=== PATIENT | female | born 1940 | race Caucasian/White ===

== ENCOUNTER → 2019-07-09 | Day surgery (SDC) | payer MEDICARE, OTHER ==
[~2019-07-09] MED LIST: ALEVE220 MG PO; COUMADIN 1MG TAB1 M1 PO; LIPITOR 20 MG T20 M1 PO; METFORMIN HCL500 MG PO; NORCO 5-325 TA1 EACH PO; NORVASC5 MG PO; OMEGA 3 FISH OIL PO; OXYIR5 MG PO; TRAMADOL 50 MG50 MG PO; VITAMIN D 5050000 I1 PO
[2019-07-09 09:55] LABS: HEMATOCRIT 41.9 % (37.0-47.0); HEMOGLOBIN 14.3 gm/dL (12.0-15.0); MCH 29.2 pg (26.0-34.0); MCV 85.7 fL (80.0-100.0); MPV 8.6 fl. (7.2-11.1); RBC 4.89 mil/uL (4.20-5.00); RDW-CV 14.1 % (10.5-14.5)
[2019-07-09 10:04] LABS: CALCIUM 9.3 mg/dL (8.5-10.1); POTASSIUM 4.8 mmol/L (3.5-5.1)
[2019-07-09 10:09] LABS: ALBUMIN 3.9 g/dL (3.4-5.0); TOTAL BILIRUBIN 0.7 mg/dL (<0.1-1.0); TOTAL PROTEIN 7.6 g/dL (6.4-8.2)
--- NOTE | 2019-07-09 13:47 | EKG ---
[place] [address] ELECTROCARDIOGRAM REPORT Name: WINGDILMA Rosales Room: [facility]#: [id number] Admission: 07/09/19 Attend Phys: Lorie Short DO Discharge: Date of : 36 Report #: [id number] THIS REPORT FOR: //name// [facility] Test Date: 2019-07-09 Test Time: 09:51:19 Pat Name: DILMA DIMAS Department: Room: Gender: F Chief Technical Officer: : 1940 Requested By: Pasquale Zaragoza Order Number: [id number] Pranay MD: Jose Johnson Measurements Intervals [place] Rate: 80 P: 39 WI: 156 QRS: 50 QRSD: 96 T: 6 QT: 402 QTc: 464 Interpretive Statements Sinus rhythm Baseline wander in lead(s) V3 Compared to ECG 11/19/2009 14:44:23 Ventricular premature complex(es) no longer present Electronically Signed On 07-09-2019 13:46:47 [employer]ESS[employer]INE[employer] by Jose Johnson [email or web address] <ELECTRONICALLY SIGNED> By: Jose Johnson MD, [facility] 07/09/19 1346 [phone] Jose Johnson MD, [facility] /EPI
--- NOTE | 2019-07-14 13:15 | OP ---
[address] [address] OPERATIVE REPORT Name: DILMA DIMAS Room: [facility].#: [id number] Admission: 07/09/19 Attend Phys: Lorie Short DO Discharge: Date of : 36 Report #: [id number] THIS REPORT FOR: //name// CC: Lorie Cohen DO DICTATED BY: Edgar Salcedo DO DATE OF SERVICE: 07/09/2019 Edgar Salcedo DO, PGY3 dictating on behalf of Lorie Short DO. PREOPERATIVE DIAGNOSIS: Right breast intraductal papilloma. POSTOPERATIVE DIAGNOSES: Right breast intraductal papilloma. SURGEON: Lorie Short DO CO-SURGEON: Edgar Salcedo DO, PGY3 PARTS TECHNICIAN: Mann MS3. PROCEDURE PERFORMED: Right breast wire localized lumpectomy. ANESTHESIA: General and local. ESTIMATED BLOOD LOSS: 2 mL. SPECIMEN: Right breast lumpectomy. COMPLICATIONS: None. FINDINGS: Wire localization. INDICATIONS: The patient is an 78-year-old female with a history of left-sided breast cancer, who presented after findings of right breast intraductal papilloma. Due to her being symptomatic, we did elect to proceed with right breast lumpectomy under wire localization. Risks, complications, benefits, and alternatives discussed at length and she agreed to proceed with surgery. Prior to our surgical procedure, consent was obtained. DESCRIPTION OF PROCEDURE: The patient was taken to the Radiology suite and right breast clip was localized with a wire. The patient was then taken to the operating room and placed in the supine position. SCDs applied to [address] [address] OPERATIVE REPORT Name: WINGDILMA Rosales Room: [facility]#: [id number] Admission: 07/09/19 Attend Phys: Lorie Short DO Discharge: Date of : 36 Report #: [id number] lower extremities. A safety belt placed across the patient's waist. 2 g Ancef given for surgical prophylaxis. At this time, general anesthesia was administered without any complication. The patient was prepped and draped in the standard sterile fashion. Timeout was performed to confirm the patient and procedure. The right breast was palpated and the tip of the needle could be vaguely felt close to the nipple. A curvilinear incision was made just underneath the nipple with a 15 blade scalpel. Electrocautery was used for hemostasis. Once the breast tissue was encountered, dissection was carried carefully towards the superior portion of needle. At this point, once the needle was encountered, it was circumferentially dissected out with a hemostat. Once this happened, the needle was removed leaving the wire in place, a wire then was grasped with a hemostat and brought up into our surgical field out of the skin. At this point, we proceeded with her lumpectomy. Electrocautery was used to circumferentially dissect around the wire. Using palpation as a guide, the curve of the wire, the J of the wire was then carefully felt within her mass. It was completely circumferentially dissected with electrocautery. Once the specimen was removed, it was tagged with a short stitch superiorly and a long stitch laterally and sent for pathologic evaluation. Pathologist did call to state that the wire and the clip were both within the lumpectomy specimen. At this point, our lumpectomy cavity was carefully inspected. Electrocautery was used for hemostasis. The cavity was irrigated with normal saline and all fluid was suctioned out. Subcutaneous tissue was then carefully reapproximated with 3-0 Vicryl. Skin incision was closed with 4-0 Monocryl in subcuticular fashion. Sterile dressing was applied over top. All counts were correct at the end of the case. The patient was then awoken from general anesthesia and transferred to PACU in stable condition. <ELECTRONICALLY SIGNED> By: Lorie Short DO 07/14/19 1315 1242 1313Cfanta Short DO /nt
--- NOTE | 2019-07-15 14:06 | PATH ---
[address] [address] PATHOLOGY RPT PROCEDURE Name: DILMA DIMAS Rosales Room: [facility].R.#: [id number] Admission: 07/09/19 Date of : 36 Discharge: Report #: [id number] Path Case #: [id number] [facility] Accession Number: [id number] . 01 Material submitted: . breast - RIGHT BREAST MASS SUTURE LONG LATERAL,SHORT SUP. Modifiers: right . 01 Clinical history: . Right breast intraductal papilloma . 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 SEE COMMENT. (ELVIS:pit; 07/13/2019) QTP 07/13/2019 1503 Local . 02 Comment: Surgical Pathology Cancer Case Summary . Protocol posting date: March 2019 . DCIS OF THE BREAST: Resection . Procedure ___ Excision (less than total mastectomy) . Specimen Laterality ___ Right . + Tumor Site + ___ Not specified . Size (Extent) of DCIS Estimated size of DCIS is at least 3 mm + Number of blocks with DCIS: 2 + Number of blocks examined: 12 . Histologic Type ___ Ductal carcinoma in situ . + Architectural Patterns + ___ Crib[place] [address] PATHOLOGY RPT PROCEDURE Name: DILMA DIMAS Room: [facility]#: [id number] Admission: 07/09/19 Date of : 36 Discharge: Report #: [id number] Path Case #: [id number] ___ Grade I (low) . Necrosis ___ Not identified . Margins ___ Uninvolved by DCIS Distance from closest margin: ___ Specify 0.4 mm . Specify closest margin(s): Lateral . Regional Lymph Nodes ___ No lymph nodes submitted or found . . PATHOLOGIC STAGE CLASSIFICATION (pTNM, AJCC 8th EDITION) . Primary Tumor (pT) ___ pTis (DCIS):Ductal carcinoma in situ . . Regional Lymph Nodes (pN) ___ pNX:Regional lymph nodes cannot be assessed (eg, not removed for pathological study or previously removed) . + Microcalcifications + ___ Present in DCIS + ___ Other (specify): Involving fibrous stroma of papilloma. . + Clinical History + ___ Palpable mass + ___ Nipple discharge + ___ Other (specify): Recent right breast 0800, 1 cm from nipple, core needle biopsy performed at [facility] around 05/24/2019 showing portion of intraductal papilloma with focal atypia and sclerosis (specimen [id number]). . Focal DCIS is seen to partially involve a papilloma in A2 and A3 and the closest approach of the entire papilloma to a margin is seen in A2 where it is located 0.4 mm away from the lateral margin. A panel of properly controlled immunohistochemical studies performed on A2 shows the following results, supporting the diagnosis: CK5/6: Predominance of papilloma showing heterogenous positivity with area of DCIS negative. Smooth muscle myosin heavy chain: Positive P63: Positive . Estrogen and progesterone receptor studies will be performed [place] [address] PATHOLOGY RPT PROCEDURE Name: DILMA DIMAS Rosales Room: [facility]#: [id number] Admission: 07/09/19 Date of : 36 Discharge: Report #: [id number] Path Case #: [id number] will be the subject of an addendum report. Reviewed with Dr. Demarco Moe who agrees with the diagnosis. Dr. Short notified at approximately 1345 on 07/15/[address] Demarco Moe. (ELVIS:pit; 07/13/2019) . This case was prepared and proofread by Dr. Javier Blackmon and electronically released by Dr. Marya Moe. (ELVIS:mml; 07/13/2019) . 02 Electronically signed: . Marya Moe MD, Pathologist NPI- [id number] . 01 Gross description: . Received in formalin labeled "Dimas, Dilma, mass right breast" and further labeled on the requisition as "short superior long lateral" is an oriented breast lumpectomy specimen weighing 13 g and measuring 3.8 cm from anterior to posterior, 3.5 cm from superior to inferior, 2.5 cm from medial to lateral. The specimen is inked as follows: superior-red, inferior-blue, anterior-green, posterior-black, lateral-orange, medial-yellow. The specimen is sectioned from anterior to posterior into 9 slices. Within slices 1-3 is a moses-white fibrous mass measuring 1.1 x 1.0 x 0.8 cm. The mass measures to the margins as follows: 0.1 cm to superior, 1.5 cm to inferior, less than 0.1 to anterior, 2.7 cm to posterior, 0.1 cm to lateral, and 0.3 cm to medial. An open coil biopsy clip is identified in slice 2. The uninvolved breast parenchyma is yellow and lobulated. The specimen is submitted entirely as follows: A1 slice 1, anterior margin, perpendicular sections A2 slice 2 A3 slice 3 A4-A5 slice 4 A6-A7 slice 5 A8-A9 slice 6 A10 slice 7 A11 slice 8 A12 slice 9, posterior margin, perpendicular sections The specimen is removed from the patient at 1216 and placed in formalin at 1224 on July 09, 2019. The specimen is removed from formalin at 1850 on July 11, 2019. [place] [place] [facility] 07/11/2019 0906 Local . 02 Pathologist provided ICD-10: D24.1, D05.11 . 02 CPT . 924916, [id number], B01897 Specimen Comment: A courtesy copy of this report has been sent to [phone], [phone] Specimen Comment: [id number] [place] [address] PATHOLOGY RPT PROCEDURE Name: DILMA DIMAS Room: [facility].#: [id number] Admission: 07/09/19 Date of : 36 Discharge: Report #: [id number] Path Case #: [id number] Specimen Comment: Report sent to / DR GONZALEZ Performed at: 01 [facility] [address] [place] [address] [address], [place], [place] [id number] MD Dimitri Guzman MD Phone: [phone] Performed at: 02 [facility] [place] [id number] MD Zaid Blackmon MD Phone: [phone]
== END | disposition home or self-care (01) ==
LOC: M.SUR 09:20 → EDSTATUS 10:30 → M.RAD 10:30 → M.SUR 10:30
PROVIDERS: Anesthesiology
DX: D05.11 Intraductal carcinoma in situ of right breast (principal); D24.1 Benign neoplasm of right breast; I10 Essential (primary) hypertension; E11.9 Type 2 diabetes mellitus without complications; Z85.3 Personal history of malignant neoplasm of breast; Z98.890 Other specified postprocedural states; Z79.899 Other long term (current) drug therapy; Z90.710 Acquired absence of both cervix and uterus; Z96.641 Presence of right artificial hip joint